=== PATIENT | male | born 1995 | race Caucasian/White ===

== ENCOUNTER 2020-08-22 15:01 | Emergency (ER) | payer BC ==
[~2020-08-22] VITALS: Wt 77.1 kg
[2020-08-22] MEDS ORDERED: Motrin,Rufen800 MG PO (16:35)
== END 2020-08-22 16:54 | disposition home or self-care (01) ==
LOC: ED 15:01
DX: S43.101A Unspecified dislocation of right acromioclavicular joint, initial encounter (principal); Z88.8 Allergy status to other drugs, medicaments and biological substances; V86.99XA Unspecified occupant of other special all-terrain or other off-road motor vehicle injured in nontraffic accident, initial encounter; Y93.89 Activity, other specified; Y92.89 Other specified places as the place of occurrence of the external cause; Y99.8 Other external cause status